=== PATIENT | male | born 1995 | race Caucasian/White ===

== ENCOUNTER 2019-10-31 11:57 | Emergency (ER) | payer OTHER ==
[~2019-10-31] VITALS: Ht 157.5 cm; Wt 63.5 kg
[2019-10-31] MEDS ORDERED: CARBIDOPA-LEVO1 EA10 PO (12:18)
[2019-10-31] MEDS ORDERED: KEFLEX500 M1 PO (15:43)
[2019-10-31 16:39] VITALS: BP 125/80
== END 2019-10-31 16:39 | disposition home or self-care (01) ==
LOC: M.ERS 11:57
DX: S81.842A Puncture wound with foreign body, left lower leg, initial encounter (principal); W29.4XXA Contact with nail gun, initial encounter; Y92.89 Other specified places as the place of occurrence of the external cause; Y93.89 Activity, other specified; Y99.0 Civilian activity done for income or pay